=== PATIENT | female | born 1990 | race Caucasian/White ===

== ENCOUNTER 2018-02-28 08:00 | Inpatient (IN) ==
[2018-02-28] MEDS ORDERED: *HR* Nalbuphine 10 MG/ML AMPUL IVP PRN (08:37)
[2018-02-28] MEDS ORDERED: Ondansetron 4 MG/2 ML VIAL IVP PRN (08:37)
[2018-02-28] MEDS ORDERED: Naloxone 0.4 MG/ML INJ IVP PRN (08:37)
[2018-02-28] MEDS ORDERED: Metoclopramide 10 MG/2 ML VIAL IVP PRN (08:37)
[2018-02-28] MEDS ORDERED: Famotidine 20 MG/2 ML VIAL IVP PRN (08:37)
[2018-02-28 08:51] LABS: Basophils % 0.3 %; Eosinophils # 0.1 K/mcL (0.0-0.6); Eosinophils % 1.6 %; Hematocrit 36.8 % (35.3-44.9); Hemoglobin 12.6 g/dL (11.5-15.4); Lymphocytes # 2.1 K/mcL (0.6-4.6); Lymphocytes % 24.1 %; Mean Corpuscular HGB Conc 34.2 g/dL (31.6-35.5); Mean Corpuscular Hemoglobin 31.7 pg (28.0-33.3); Mean Corpuscular Volume 92.5 fL (83.0-100.0); Mean Platelet Volume 11.8 fL (9.4-12.4); Monocytes # 0.6 K/mcL (0.0-1.3); Monocytes % 7.1 %; Neutrophils # 5.7 K/mcL (1.6-8.9); Platelet Count 224 K/mcL (140-400); Red Blood Count 3.98 M/mcL (3.82-4.97); Red Cell Distribution Width 12.8 % (11.5-14.5); Segmented Neutrophils % 65.9 %
--- NOTE | 2018-02-28 08:55 | OB/GYN History & Physical ---
Date of Encounter: 02/28/18 Time of Encounter: 08:48 Assessment and Plan (1) and not yet delivered in third trimester Current visit: Yes Status: Acute (2) 39 weeks gestation of Current visit: Yes Status: Acute (3) Elective induction of labor planned Current visit: Yes Status: Acute We will induce with a Chacon catheter and Cytotec patient will get an epidural when ready plan is to anticipate vaginal delivery History of Present Illness HPI: Ms. Chicas is a 27 year old female 2 para 0010 at 39-3/7 weeks who presented for induction of labor secondary to term with favorable cervix. Patient states she has had occasional contractions but nothing that is uncomfortable denies any leaking of fluid no vaginal bleeding she had an ultrasound February 11 baby was 3255 g with an VELVET of 19 cm. Did inform the patient when she got in the 39 week range we could deliver. Patient is O+, rubella positive, GBS negative, Varicella postive Past Med Surg Social Fam HX - Past Medical History Source: patient, old records reviewed Medical history: no medical history Psychiatric history: no psych history - Past Surgical History Surgical History: no surgical history - Social History Smoking Status: Never smoker Alcohol use: none Drug use: none Occupational status: unemployed Current living situation: Home - Independent Recent Out of Country Travel Within the Last 8 Weeks: No Exposure or Possible Exposure to Illness During Travel: No - Family History Daughter Living Status: Still Living Hx Family Cardiac Disorders: Yes (HTN) - Additional Family History Additional family history: Family history noncontributory Obstetrical History - Pregnancies : 2 Para: 0 Term: 0 : 0 Ab's: 1 Livin Medications and Allergies Vits96/Iron Fum/Folic [ Tablet] 1 tab PO DAILY 02/28/18 [ History] 3 Allergy/AdvReac Type Severity Reaction Status Date / Time Amoxicillin Allergy Hives Verified 08/23/16 08:01 Review of System OB All systems PM: reviewed and no additional remarkable complaints except as stated Exam - Constitutional Constitutional: well developed, well nourished, no acute distress, average body habitus - HEENT HEENT: EOMI, PERRL, Mucus Membranes Moist - Neck Neck exam: full ROM - Lungs Respiratory exam: CTAB - Cardiovascular Cardiovascular exam: RRR - Abdomen Abdomen: Present: bowel sounds normal, gravid ( heart tones 140s reactive no contraction seen) - Vagina Vagina: Present: normal moisture - Cervix Dilation: 2 Effacement: 80 Station: -3 (Chacon catheter placed to 40 mL balloon inflated and 25 g of Cytotec placed vaginally) Results All other labs normal. - VTE Reasons for not Prescribing Prophylaxis: Treatment not Indicated - Low risk for VTE
[2018-02-28] MEDS ORDERED: miSOPROStol 25 MCG TABLET VG SCH ×2 (08:58→12:00)
[2018-02-28] MEDS: Ringers Solution, Lactated 1,000 ML IVC SCH ×2 (09:08→14:30)
--- NOTE | 2018-02-28 11:27 | Anesthesia Evaluation PreOp ---
Date of Encounter: 02/28/18 Time of Encounter: 11:24 - Past History Planned Operation: butch Cardiac History: Denies any Significant Hx Pulmonary History: Denies Any Significant HX NUCLEAR OPERATOR History: Denies Any Significant HX Other Medical History: Denies Any Significant HX Anesthesia History: No Prior Anesthetic Complications, Past Anesthesia : Yes (, 39 wks) Alcohol Use: none Drug use: none Medications and Allergies Vits96/Iron Fum/Folic [ Tablet] 1 tab PO DAILY 02/28/18 [ History] 3 Allergy/AdvReac Type Severity Reaction Status Date / Time Amoxicillin Allergy Hives Verified 08/23/16 08:01 - Meds/Allergy Pre-op Review Medications Reviewed: Yes Allergies Reviewed: Yes Beta Blockers on Current Med List: No Anesthesia Results - Labs 02/28/18 08:38 Anesthesia Exam O2 Sat Height 1.6 m Weight 100.4 kg Height: 63 Weight: 221 - HEENT Pupil (Motor): Pupils equal Mallampati: II Teeth: Normal Oral Opening: Greater than 3 - NUCLEAR OPERATOR LOC: Oriented NUCLEAR OPERATOR Motor: Normal RUE, Normal LUE, Normal RLE, Normal LLE, Normal Face NUCLEAR OPERATOR Sensory: Normal: RUE, LUE, RLE, LLE, Face - Cardiac Rhythm: Regular Murmur: None JVD: No Carotid Bruit: No - Pulmonary Breath Sounds: bilateral Clear Respiratory Effort: Symmetrical Anesthesia Assess/Plan ASA Score: 2 Modified [place] Scale for Level of Consciousness: Cooperative, oriented, and tranquil Anesthetic Plan: Regional Monitoring Plan: Standard Monitors
[2018-02-28] MEDS ORDERED: Methylergonovine 0.2 MG/ML AMPUL IM ONE (11:29)
[2018-02-28 13:29] LABS: Amphetamine Screen,Urine Negative ng/mL (Cutoff=1000); Barbiturate Screen,Urine Negative ng/mL (Cutoff=200); Benzodiazepines Screen,Urine Negative ng/mL (Cutoff=200); Cannabinoid Screen,Urine Negative ng/mL (Cutoff = 50); Cocaine Screen,Urine Negative ng/mL (Cutoff= 300); Opiate Screen,Urine Negative ng/mL (Cutoff=300); Phencyclidine Screen,Urine Negative ng/mL (Cutoff=25)
[2018-02-28] MEDS ORDERED: Bupivacaine-MPF 0.25% 10 ML VIAL ONE (14:36)
[2018-02-28] MEDS ORDERED: Lidocaine -MPF 1% 5 ML AMPUL ONE (14:36)
[2018-02-28] MEDS ORDERED: *HR* FentaNYL (PF) 100 MCG/2 ML VIAL ONE (14:36)
[2018-02-28] MEDS ORDERED: Epidural Premix (fent/bupiv) 110 ML EP ONE (15:01)
--- NOTE | 2018-02-28 15:06 | OB Labor Progress Note ---
Date of Encounter: 02/28/18 Time of Encounter: 15:05 Labor Progress Note - Subjective Subjective: Patient resting comfortably with epidural. - Cervix Cervix: 5/70/-2 - Heart Tones Heart Tones: FHR category I - [place]: Contractions every 3-5 minutes and palpate strong - Interventions Interventions: SVE AROM-large amount of clear fluid - Plan Plan: Continue induction management Frequent position changes Anticipate vaginal delivery
[2018-02-28] MEDS ORDERED: Bupivacaine-MPF 0.25% 10 ML VIAL EP ONE (15:11)
[2018-02-28] MEDS ORDERED: EPHEDrine 50 MG/ML VIAL IVP PRN (15:11)
[2018-02-28] MEDS ORDERED: *HR* FentaNYL (PF) 100 MCG/2 ML VIAL EP ONE (15:11)
[2018-02-28] MEDS ORDERED: Epidural Premix (fent/bupiv) 110 ML EP SCH (15:15)
--- NOTE | 2018-02-28 15:19 | Anesthesia Procedures ---
Date of Encounter: 02/28/18 Time of Encounter: 15:17 Procedures: Anesthesia - Epidural/Spinal Patient ID/Chart reviewed: Yes Patient examined: Yes OB Eval: Contractions: Non-stressed pattern Consent Obtained: Yes Supplemental Oxygen: None/Room Air Site Prep: Aseptic Technique Patient position: upright Local Anesthetic: Lidocaine 1% Amount of Local Anesthetic used: 3 Touhy Needle Gauge: 18 Touhy Needle Depth (cm): 8 Catheter Depth at Skin (cm): 14 Loading Dose: 0.25% Marcaine (mls): 6 Loading Dose: Fentanyl (mcg): 100 Infusion Med: 0.125% Bupivacaine w/ 2 mcg/ml Fentanyl Infusion Rate (mls/hr): [address]: Tegaderm Interspace Used: L3-L4 Loss of Resistance (BILLY): Yes Blood: No CSF: No Paresthesia: No
[2018-02-28] MEDS ORDERED: Oxytocin 20 units/ LR 1000 mL 20 UNIT/1,000 ML BAG IVC SCH ×2 (18:30→22:31)
--- NOTE | 2018-02-28 21:50 | OB/GYN Procedure Note ---
Delivery - Delivery Date: 02/28/18 Provider: Chivo Merida Intrapartum events: none Delivery induction: whitehead, misoprostol Delivery augmentation: rupture of membranes Delivery monitor: external FHT, external uterine, internal uterine Anesthesia: local, epidural Quantitated Blood Loss: 200 - Infant (s) Infant A Infant Delivery Date: 02/28/18 Delivery Time: 20:35 Presentation: vertex Position: MICK Route of delivery: Gender: Male Viability: Viable Pounds: 7 Ounces: 9 Weight Gram: 3.435 kg at 1 minute: 8 at 5 mins: 9 Shoulder Dystocia: not encountered Specimens collected: cord blood Placenta: spontaneous Cord: 3 umbilical vessels - Repair Episiotomy: none Laceration Description: Perineal - 1st Degree, Labial (left) - Complications Delivery complications: none, other Delivery comments: Patient is a 27-year-old 2 para 0010 at 39-3/7 weeks who presented for induction of labor secondary with favorable cervix. Whitehead catheter and Cytotec was placed vaginally catheter fell out when she was 4-5 cm patient received an epidural she was then artificially ruptured for clear fluid patient did not require any additional augmentation progressed to complete push for approximately 30 minutes delivering a viable male in right occiput anterior presentation at 2034. There was no nuchal cord, no meconium, was bulb suctioned on the abdomen. Apgars were 8 at 1 minute, 9 at 5, and weight was 7 lbs. 9 oz. Placenta delivered spontaneously with a three-vessel cord, edge beader Dr. Merida, first officer and flight instructor Sadia Dario OMS3, anesthesia epidural local, estimated blood loss 200 mL. Patient had a left labial laceration repaired with 4-0 Vicryl in usual fashion and a first-degree perineal laceration. Patient's perineum was very edematous every time he tried to pass a needle and tied the suture is protruding through causing additional bleeding. We were eventually able to get the bleeding under control patient and started bleeding but appeared to be from higher up. We did assess the did not find any additional lacerations significant from the uterine cavity. Uterus was explored some clots were removed but I could not feel any retained placenta or membranes. 0.2 mg Methergine was given IM and patient was observed bleeding did significantly slowed down and the procedure was terminated all needles lap sponge counts were correct 3 patient will be observed for 2 hours she will be given by mouth Methergine every 8 hours for 24 hours to help with the potential bleeding. - Disposition Mom disposition: stable in LDR Dwarf disposition: stable in LDR
[2018-02-28] MEDS ORDERED: Measles/Mumps/Rubella Vacc 0.5 ML VIAL SQ PRN (22:31)
[2018-02-28] MEDS ORDERED: Acetaminophen 325 MG TABLET PO PRN (22:31)
[2018-03-01] MEDS: Ibuprofen 600 MG TABLET PO PRN ×4 (01:11→22:13)
[2018-03-01 05:16] LABS: Basophils % 0.2 %; Eosinophils # 0.1 K/mcL (0.0-0.6); Eosinophils % 0.4 %; Hematocrit 32.6 % (35.3-44.9); Hemoglobin 11.1 g/dL (11.5-15.4); Immature Granulocytes % 0.5 % (0-4); Lymphocytes # 1.8 K/mcL (0.6-4.6); Lymphocytes % 10.1 %; Mean Corpuscular Hemoglobin 31.9 pg (28.0-33.3); Mean Corpuscular Volume 93.7 fL (83.0-100.0); Mean Platelet Volume 11.6 fL (9.4-12.4); Monocytes % 5.7 %; Platelet Count 188 K/mcL (140-400); Red Blood Count 3.48 M/mcL (3.82-4.97); Red Cell Distribution Width 13.1 % (11.5-14.5); Segmented Neutrophils % 83.1 %
--- NOTE | 2018-03-01 07:16 | OB/GYN Progress Note ---
Date of Encounter: 03/01/18 Time of Encounter: 07:10 - Assessment and Plan (1) and not yet delivered in third trimester Current Visit: No Status: Acute (2) 39 weeks gestation of Current Visit: No Status: Acute (3) Elective induction of labor planned Current Visit: No Status: Acute We will induce with a Chacon catheter and Cytotec patient will get an epidural when ready plan is to anticipate vaginal delivery (4) Status post normal vaginal delivery Current Visit: Yes Status: Acute (5) Vulvar and perineal hematoma, Current Visit: Yes Status: Acute We will continue to apply pressure to the vulvar area we will start some IV vancomycin due to elevated white count anticipate discharge in a.m. if stable and afebrile Subjective - Subjective Interval history: Patient states doing well perineum is very tender bleeding minimal. White count is elevated with a left shift. Hemoglobin is stable hematoma is stable also there is been no expansion since pressure has been applied to the area overnight. Patient reports: appetite normal, voiding normally, pain well controlled : doing well Objective - Latest Vital Signs Latest vital signs: Vital Signs Temp Pulse Resp BP Pulse Ox 03/01/18 04:40 98.1 F 80 16 126/84 97 03/01/18 01:00 98.5 F 78 18 119/79 96 03/01/18 00:00 98.2 F 90 17 139/77 02/28/18 23:00 98.4 F 84 17 136/73 Intake and Output 02/28/18 02/28/18 03/01/18 15:59 23:59 07:59 Intake Total 1000 / 1000 200 / 200 Output Total 1100 / 1100 Balance 1000 / 1000 -900 / -900 Intake: IV Fluids 1000 / 1000 Lactated Ringers 1,000 ML @ 125 1000 / 1000 mls/hr IVC .Q8H OLGA Rx#: [id number] Oral 200 / 200 Output: Urine 1100 / 1100 Other: Weight 100.4 kg 97.5 kg Patient Weight 03/01/18 23:59 Weight 97.5 kg - Exam Lungs: bilateral: normal Chest: Normal S1, Normal S2 Extremities: Present: normal Abdomen: Present: normal appearance Uterus: Present: normal, firm Uterus Position: At Umbilicus Comments: Right labia majora no longer expanding with the hematoma appears to be same size as the left at this time minimal lochia noted. - Labs Labs: Laboratory Results - last 24 hr 02/28/18 02/28/18 02/28/18 08:37 08:37 08:38 WBC 8.6 RBC 3.98 Hgb 12.6 Hct 36.8 MCV 92.5 MCH 31.7 MCHC 34.2 RDW 12.8 Plt Count 224 MPV 11.8 Immature Gran % 1.0 Seg Neutrophils % 65.9 Lymphocytes % 24.1 Monocytes % 7.1 Eosinophils % 1.6 Basophils % 0.3 Neutrophils # 5.7 Lymphocytes # 2.1 Monocytes # 0.6 Eosinophils # 0.1 Basophils # 0.0 Urine Opiates Screen Negative Ur Barbiturates Screen Negative Ur Phencyclidine Scrn Negative Ur Amphetamines Screen Negative U Benzodiazepines Scrn Negative Urine Cocaine Screen Negative U Marijuana (THC) Screen Negative Ur Drug Screen Interp See Below Hep Bs Antigen Nonreactive 03/01/18 04:47 WBC 18.0 H D RBC 3.48 L Hgb 11.1 L D Hct 32.6 L MCV 93.7 MCH 31.9 MCHC 34.0 RDW 13.1 Plt Count 188 MPV 11.6 Immature Gran % 0.5 Seg Neutrophils % 83.1 Lymphocytes % 10.1 Monocytes % 5.7 Eosinophils % 0.4 Basophils % 0.2 Neutrophils # 15.0 H Lymphocytes # 1.8 Monocytes # 1.0 Eosinophils # 0.1 Basophils # 0.0 Urine Opiates Screen Ur Barbiturates Screen Ur Phencyclidine Scrn Ur Amphetamines Screen U Benzodiazepines Scrn Urine Cocaine Screen U Marijuana (THC) Screen Ur Drug Screen Interp Hep Bs Antigen
[2018-03-01] MEDS ORDERED: 0.9 % Sodium Chloride 1,000 ML ONE (07:59)
[2018-03-01] MEDS: Prenatal Vit/FA 1 EACH TABLET PO SCH (08:07)
[2018-03-01] MEDS ORDERED: Prenatal Vit/FA 1 EACH TABLET PO SCH (09:00)
[2018-03-01 09:46] LABS: BUN/Creatinine Ratio 9 (6-26); Blood Urea Nitrogen 4 mg/dL (6-20); eGFR For Non-African Americans > 60 (> 60)
[2018-03-02] MEDS: Ibuprofen 600 MG TABLET PO PRN (06:34)
[2018-03-02 06:58] LABS: Basophils % 0.3 %; Eosinophils # 0.3 K/mcL (0.0-0.6); Eosinophils % 2.4 %; Hematocrit 30.4 % (35.3-44.9); Hemoglobin 10.2 g/dL (11.5-15.4); Immature Granulocytes % 0.7 % (0-4); Lymphocytes # 2.2 K/mcL (0.6-4.6); Lymphocytes % 17.9 %; Mean Corpuscular HGB Conc 33.6 g/dL (31.6-35.5); Mean Corpuscular Hemoglobin 31.9 pg (28.0-33.3); Mean Platelet Volume 11.2 fL (9.4-12.4); Monocytes % 7.7 %; Neutrophils # 8.7 K/mcL (1.6-8.9); Platelet Count 190 K/mcL (140-400); Red Cell Distribution Width 13.5 % (11.5-14.5)
[2018-03-02] MEDS: Prenatal Vit/FA 1 EACH TABLET PO SCH (07:38)
--- NOTE | 2018-03-02 07:53 | Discharge Summary ---
Date of Encounter: 03/02/18 Time of Encounter: 07:51 - Discharge Diagnosis (1) and not yet delivered in third trimester Priority: Secondary Status: Acute (2) 39 weeks gestation of Priority: Secondary Status: Acute (3) Elective induction of labor planned Priority: Secondary Status: Acute (4) Status post normal vaginal delivery Priority: Primary Status: Acute Comments: We will discharge patient home with prescription for Motrin 800 mg, Vicodin 5 mg , iron sulfate (5) Vulvar and perineal hematoma, Priority: Primary Status: Acute - Discharge Medications Prescriptions: Ibuprofen [Motrin] 600 mg PO Q6HR PRN #30 tablet PRN Reason: Cramping Ferrous Sulfate 325 mg PO DAILY #30 tablet Home Medications: Vits96/Iron Fum/Folic [ Tablet] 1 tab PO DAILY 02/28/18 [ History] Ferrous Sulfate 325 mg PO DAILY #30 tablet 03/02/18 [Rx] Ibuprofen [Motrin] 600 mg PO Q6HR PRN #30 tablet 03/02/18 [Rx] Allergies/Adverse Reactions: 3 Allergy/AdvReac Type Severity Reaction Status Date / Time Amoxicillin Allergy Hives Verified 08/23/16 08:01 Data Procedures and tests throughout hospitalization: Laboratory Tests 02/28/18 02/28/18 02/28/18 08:37 08:37 08:38 WBC 8.6 RBC 3.98 Hgb 12.6 Hct 36.8 MCV 92.5 MCH 31.7 MCHC 34.2 RDW 12.8 Plt Count 224 MPV 11.8 Immature Gran % 1.0 Seg Neutrophils % 65.9 Lymphocytes % 24.1 Monocytes % 7.1 Eosinophils % 1.6 Basophils % 0.3 Neutrophils # 5.7 Lymphocytes # 2.1 Monocytes # 0.6 Eosinophils # 0.1 Basophils # 0.0 BUN Creatinine Est GFR ( Amer) Est GFR (Non-Af Amer) BUN/Creatinine Ratio Urine Opiates Screen Negative Ur Barbiturates Screen Negative Ur Phencyclidine Scrn Negative Ur Amphetamines Screen Negative U Benzodiazepines Scrn Negative Urine Cocaine Screen Negative U Marijuana (THC) Screen Negative Ur Drug Screen Interp See Below Hep Bs Antigen Nonreactive 03/01/18 03/01/18 03/02/18 04:47 08:31 06:34 WBC 18.0 H D 12.3 H RBC 3.48 L 3.20 L Hgb 11.1 L D 10.2 L Hct 32.6 L 30.4 L MCV 93.7 95.0 MCH 31.9 31.9 MCHC 34.0 33.6 RDW 13.1 13.5 Plt Count 188 190 MPV 11.6 11.2 Immature Gran % 0.5 0.7 Seg Neutrophils % 83.1 71.0 Lymphocytes % 10.1 17.9 Monocytes % 5.7 7.7 Eosinophils % 0.4 2.4 Basophils % 0.2 0.3 Neutrophils # 15.0 H 8.7 Lymphocytes # 1.8 2.2 Monocytes # 1.0 1.0 Eosinophils # 0.1 0.3 Basophils # 0.0 0.0 BUN 4 L Creatinine 0.45 L Est GFR ( Amer) > 60 Est GFR (Non-Af Amer) > 60 BUN/Creatinine Ratio 9 Urine Opiates Screen Ur Barbiturates Screen Ur Phencyclidine Scrn Ur Amphetamines Screen U Benzodiazepines Scrn Urine Cocaine Screen U Marijuana (THC) Screen Ur Drug Screen Interp Hep Bs Antigen Labs on day of discharge: Labs from last 24 hours 03/02/18 03/01/18 06:34 08:31 WBC 12.3 H RBC 3.20 L Hgb 10.2 L Hct 30.4 L MCV 95.0 MCH 31.9 MCHC 33.6 RDW 13.5 Plt Count 190 MPV 11.2 Immature Gran % 0.7 Seg Neutrophils % 71.0 Lymphocytes % 17.9 Monocytes % 7.7 Eosinophils % 2.4 Basophils % 0.3 Neutrophils # 8.7 Lymphocytes # 2.2 Monocytes # 1.0 Eosinophils # 0.3 Basophils # 0.0 BUN 4 L Creatinine 0.45 L Est GFR ( Amer) > 60 Est GFR (Non-Af Amer) > 60 BUN/Creatinine Ratio 9 Date of admission: 02/28/18 08:12 Primary care physician: PCP NONE Consults: 02/28/18 22:31 Consult to Cutting Machine Operator [CONS] Routine Comment: Vaginal delivery, consult needed Discharging clinician: Chivo Merida (t) Anticipated date of discharge: 03/02/18 - Patient Status Disposition: Home, Self-Care Condition: Good Functional capacity at discharge: independent ambulation Overall status at discharge: patient is progressing back to baseline - Discharge Instructions Follow Up With: NONE,PCP [Primary Care Provider] - Chivo Merida DO [Partnered Physician] - - Diet and Activity Activity: increase activity as tolerated Diet: advance to your usual diet Hospital Course Procedures: Normal spontaneous vaginal delivery Reason for admission: induction of labor Delivery: Episiotomy: none Laceration: 1st degree, other (Left labial) Other procedures: none complications: hematoma (Left labia) Discharge diagnosis: IUP at term delivered Ophiem baby: male Hospital course: Patient is a 27-year-old 2 para 0010 in the 39 week range. Presented for induction of labor secondary . Patient was induced with a Chacon catheter and Cytotec. Patient delivered vaginally with a left labial laceration and first-degree perineal. The difficulty getting bleeding under control because the tissue was so edematous the surgical critical now causing more bleeding. We did get the bleeding under control she had some bleeding from the uterine cavity requiring some Methergine to finally get that under control. Patient was being observed and was noted to have a hematoma forming on the left labia. We did a primary pressure to the perineum which did help with resolution of this hematoma. Patient's hospital course was unremarkable the Patient comfortable with pain medication and pressure against perineum by hospital day #2 hematoma had resolved she was having minimal pain and was ready to go home she will be discharged home on iron sulfate 325 mg 1 daily, Motrin 600 mg 1 every 6 hours any for pain, and Vicodin 5 mg 1 every 4-6 hours as needed for pain she will follow up in my office in 4 weeks. Patient's condition at time of discharge was stable Time Attestation: Total time spent providing and/or coordinating discharge services: Exam - Constitutional Vitals: Temp Pulse Resp BP Pulse Ox 97.5 F L 71 16 120/82 98 03/01/18 22:45 03/01/18 22:45 03/01/18 22:45 03/01/18 22:45 03/01/18 22:45 General appearance IM: mild distress, A&O X 3 - Respiratory Respiratory exam: Present: CTAB - Cardiovascular Cardiovascular exam IM: Present: RRR - GI/Abdominal GI/Abdominal exam IM: normal bowel sounds - Rectal Rectal exam: deferred - External exam: swelling (Hematoma of the left labia has resolved) Uterus Position: At Umbilicus
[2018-03-02 08:27] VITALS: BP 127/84
[2018-03-02] MEDS ORDERED: Aminoglycoside Consult 1 EACH MC ONE (11:29)
== END 2018-03-02 11:30 | disposition home or self-care (01) | DRG 806 ==
LOC: 1NENULAB 08:12 → 1NENUOBS 03-01 00:02
PROVIDERS: ADMIT Obstetrics & Gynecology; ATTEND Obstetrics & Gynecology